=== PATIENT | female | born 1990 | race Caucasian/White ===

== ENCOUNTER → 2018-05-14 15:11 | Outpatient (CLI) | payer OTHER, SELFPAY ==
[2018-05-14 16:17] LABS: hCG Titer Quant., Serum 8 mIU/mL (<9 non-preg)
== END ==
PROVIDERS: Visit Provider Obstetrics & Gynecology
DX: N91.2 Amenorrhea, unspecified (principal)
CPT/HCPCS: 36415; 84702

== ENCOUNTER → 2018-05-25 14:35 | Outpatient (CLI) | payer OTHER, SELFPAY ==
[2018-05-25 17:38] LABS: Chlamydia Trachomatis by PCR Negative (Negative); Neisserai gonorrhoeae by PCR Negative (Negative); Probe Check PASS; Sample Adequacy Control PASS; Specimen Processing Control PASS
[2018-05-30 13:04] LABS: HPV Reflexed? NOT INDICATED
== END ==
PROVIDERS: Visit Provider Obstetrics & Gynecology
DX: Z34.81 Encounter for supervision of other normal pregnancy, first trimester (principal); Z12.4 Encounter for screening for malignant neoplasm of cervix; Z11.3 Encounter for screening for infections with a predominantly sexual mode of transmission
CPT/HCPCS: 87491; 87591; 88175; G0145

== ENCOUNTER → 2018-06-22 10:34 | Outpatient (CLI) | payer OTHER, SELFPAY ==
[2018-06-22 11:09] LABS: Absolute Lymphocyte Count 2.11 X10^3/ul (0.83-4.51); Absolute Neutrophil Count 5.2 X10^3/uL (2.0-7.7); Basophil# 0.03 X10^3/uL; Basophil% 0.4 % (0-1); Eosinophil# 0.16 X10^3/uL; Hematocrit 39.6 % (37-47); Hemoglobin 13.4 g/dl (12.0-15.0); Lymphocyte # 2.11 X10^3/ul (4.0); Lymphocyte % 26.5 % (19-41); Mean Corp Hgb Conc 33.8 g/gl (32-36); Mean Corpuscular Hgb 29.5 pg (27.0-32.0); Mean Platelet Vol. 10.2 fl (6.2-12.0); Monocyte% 6.3 % (0-10); Neutrophil # 5.16 X10^3/uL (2.7-7.7); Neutrophil % 64.7 % (47-70); Platelet Count 311 K/mm3 (150-450); RBC Distribution Width CV 13.8 % (11.6-14.6); RBC Distribution Width SD 43.9 fl (35.1-43.9); Red Blood Count 4.55 M/mm3 (4.2-5.4)
[2018-06-22 11:10] LABS: POSITIVE COUNT NO; POSITIVE DIFFERENTIAL NO; POSITIVE MORPHOLOGY NO
[2018-06-22 11:12] LABS: Color, Urine Yellow (Yellow); Glucose, Dipstick Normal (Normal); Ketone-Dipstick Negative (Negative); Leukocyte Esterase-Dipstick Negative /ul (Negative); Nitrite-Dipstick Negative (Negative); Occult Blood-Urine Negative /ul (Negative); Protein-Dipstick Negative (Negative); Urine Bilirubin Dipstick Negative (Negative); Urine Clarity Clear (Clear); Urine Urobilinogen Normal (Normal)
[2018-06-22 11:43] LABS: Thyroid Stim Hormone (TSH) 2.76 uIU/mL (0.358-3.74)
[2018-06-22 12:38] LABS: HIV - WCH Non-Reactive (Nonreactive); Rubella IgG 81.8 IU/mL
[2018-06-23 09:09] LABS: HEPATITIS B SURFACE AG Negative (Negative); Hep C Antibodies <0.1 s/co ratio (0.0-0.9)
[2018-06-29 02:28] LABS: Prenatal RPR NONREACTIVE (NONREACTIVE)
== END ==
PROVIDERS: Visit Provider Obstetrics & Gynecology
DX: Z34.81 Encounter for supervision of other normal pregnancy, first trimester (principal)
CPT/HCPCS: 36415; 81002; 84443; 85025; 86703; 86762; 86803; 87340

== ENCOUNTER → 2018-10-26 14:09 | Outpatient (CLI) | payer OTHER, SELFPAY ==
[2015-05-29 03:57] VITALS: BMI 38.0
[2018-10-26 16:26] LABS: Hematocrit 36.4 % (37-47); Hemoglobin 12.1 g/dl (12.0-15.0); Mean Corp Hgb Conc 33.2 g/gl (32-36); Mean Corpuscular Hgb 30.4 pg (27.0-32.0); Mean Corpuscular Volume 91.5 fL (81-99); Mean Platelet Vol. 10.3 fl (6.2-12.0); Platelet Count 260 K/mm3 (150-450); RBC Distribution Width SD 47.2 fl (35.1-43.9); Red Blood Count 3.98 M/mm3 (4.2-5.4); White Blood Count 7.8 K/mm3 (4.4-11.0)
[2018-10-26 16:32] LABS: Glucose Challenge Gest 1H 50g 97 mg/dL (70-140)
[2018-10-26 16:33] LABS: Scan Indicated on CBC? Y/N NO
== END ==
PROVIDERS: Visit Provider Obstetrics & Gynecology
DX: Z34.82 Encounter for supervision of other normal pregnancy, second trimester (principal)
CPT/HCPCS: 36415; 82950; 85027

== ENCOUNTER 2019-01-15 05:00 | Inpatient (IN) | payer OTHER, SELFPAY ==
[2019-01-15] VITALS (18 sets, daily range): BP systolic 92–115; BP diastolic 46–79; PULSE 71–95; RESP 14–18; TEMP 36.3–37.7; O2SAT 96–100; BMI 36.6
[2019-01-15] MEDS: Lactated Ringers 1,000 ML 999 ML IV (05:35)
[2019-01-15 06:07] LABS: Absolute Lymphocyte Count 2.62 X10^3/ul (0.83-4.51); Absolute Neutrophil Count 6.3 X10^3/uL (2.0-7.7); Basophil# 0.03 X10^3/uL; Basophil% 0.3 % (0-1); Hematocrit 34.7 % (37-47); Hemoglobin 11.7 g/dl (12.0-15.0); Lymphocyte # 2.62 X10^3/ul (4.0); Lymphocyte % 26.5 % (19-41); Mean Corp Hgb Conc 33.7 g/gl (32-36); Mean Corpuscular Hgb 28.9 pg (27.0-32.0); Mean Corpuscular Volume 85.7 fL (81-99); Mean Platelet Vol. 10.6 fl (6.2-12.0); Monocyte# 0.67 X10^3/uL; Monocyte% 6.8 % (0-10); Neutrophil # 6.33 X10^3/uL (2.7-7.7); Neutrophil % 64.1 % (47-70); Platelet Count 269 K/mm3 (150-450); RBC Distribution Width CV 13.1 % (11.6-14.6); RBC Distribution Width SD 41.3 fl (35.1-43.9); Red Blood Count 4.05 M/mm3 (4.2-5.4); White Blood Count 9.9 K/mm3 (4.4-11.0)
[2019-01-15 06:09] LABS: POSITIVE COUNT NO; POSITIVE DIFFERENTIAL NO; POSITIVE MORPHOLOGY NO
[2019-01-15] MEDS: Lactated Ringers 1,000 ML 150 ML IV (06:37)
[2019-01-15 06:48] LABS: Prothrombin Time (Protime)PT. 12.9 SECONDS (11.7-14.9)
[2019-01-15 06:49] LABS: Partial Thromboplast Time 27.1 Seconds (24.1-36.2)
[2019-01-15] MEDS: Sodium Citrate/Citric Acid 30 ML UDC PO (07:14)
[2019-01-15] MEDS: Ondansetron 4 MG/2 ML Vial IV (07:35)
[2019-01-15] MEDS: Oxytocin 30 units/NS 500 ml 30 UNITS/500 ML IV.SOLN 167 UNITS IV (07:48)
[2019-01-15] MEDS: Ketorolac 30 MG/ML Syringe IV ×4 (08:09→23:32)
[2019-01-15] MEDS: Lactated Ringers 1,000 ML 100 ML IV ×2 (09:00→16:01)
--- NOTE | 2019-01-15 10:39 | PCM.OPRPT ---
Report of Operation Date of Procedure: 01/15/19 Pre-Operative Diagnosis: 39 wk prior C section. Planned repeat C section Post-Operative Diagnosis: Same Surgery/Procedure Performed:: Repeat C section Description of Surgical Findings:: Findings: At amniotomy, clear fluid was noted. Tejada viable male in vertex presentation. Apgars 9/9, Baby weight: 8# 6 oz There was a normal appearing uterus, fallopian tubes and ovaries bilaterally. There were minimal filmy adhesions between the bladder and lower uterine segment. tank bottom assembler: Kalli Mobley Type of Anesthesia:: Spinal Anesthesiologist: Pedro Luis Buenrostro Specimen's removed: Placenta Drains: Valdes Estimated Blood Loss (mL): 800 Description of Procedure: Narrative account: After the risks, benefits and alternatives of the procedure were reviewed with the patient, informed consent was obtained. The patient was taken to the Operating room with an IV running, and placed in a seated position on the operating table for placement of the spinal. Once the spinal had been administered, she was placed in dorsal supine position, briefly frog-legged for Valdes catheter placement, and then repositioned to dorsal supine position with leftward displacement of the uterus, and prepped and draped in the usual sterile fashion. Once the spinal was deemed adequate, a Pfannenstiel skin incision was created using the knife (through the prior skin incision scar). The incision was carried down to the rectus fascia using the knife. The fascia was nicked in the midline. The fascial incision was extended bilaterally using curved Clements scissors. The superior aspect of the fascial incision was grasped with Lorie clamps and tented up and the underlying rectus abdominal muscles were dissected free. In a similar manner, the inferior aspect of the facial incision was grasped with Lorie clamps tented up and the underlying rectus abdominal muscles were dissected free. The rectus abdominis muscles were in the midline and the peritoneum was identified and entered by blunt dissection high in the incision. The peritoneum was stretched laterally and a bladder blade was inserted. The uterine incision was then created using Metzenbaum scissors. The operators fingertips were used to extend the uterine incision by blunt dissection in a caudad- cephalad orientation . Clear fluid was noted at amniotomy. The vertex was then delivered atraumatically through the incision. The OP and nares were bulb suctioned on the abdomen. The shoulders delivered easily . No nuchal cord was noted. The cord clamped x two and cut. And the infant was handed off to the nurse awaiting delivery after briefly showing him to his parents. The baby had a spontaneous, vigorous cry. The placenta was then delivered. The uterus was exteriorized and cleared of clots and debris . The uterine incision was repaired with 1 Vicryl in a running locked fashion. A second imbricating layer was then placed, using 1 Monocryl in running nonlocked fashion. Excellent hemostasis was noted. At this point the uterus was returned to the abdominal cavity. The gutters were cleared of clots and debris and the incision at the uterus was inspected. Excellent hemostasis was noted. The peritoneal edges and rectus abdominis muscles were reapproximated in the midline with interrupted stitches of 1 Vicryl. Excellent hemostasis was noted at the subfascial space The fascia was closed in a running nonlocked fashion with a Stratofix. The Subcutaneous fatty tissue was Bovie cauterized as needed for hemostasis. This layer was then reapproximated in a single layer closure of running 3-0 Vicryl to eliminate space. The skin edges were closed in a Subcuticular stitch of 4-0 Monocryl. The incision was cleansed. Cavilon, Steristrips, and Mepilex dressing were applied to the skin . The patient was then transferred to the recovery room bed in stable condition after tolerating the procedure well. Sponge, lap, needle and instrument counts correct times two. Medications given preop and intraoperatively included: antibiotics given cash on delivery clerk to the operating room. The patient also received Pitocin given IV after cord clamp, and Toradol 30 mg IV times one. For a complete listing of medications given preop and intraoperatively, please see the anesthesia record. - Complications None - Admit VTE Documentation VTE Present on Admission: No VTE Mechan Device Prophylaxis: SCD's VTE Pharm Prophylaxis ordered?: No
--- NOTE | 2019-01-15 10:44 | OP.PCM_ITS ---
Report of Operation Date of Procedure: 01/15/19 Pre-Operative Diagnosis: 39 wk prior C section. Planned repeat C section Post-Operative Diagnosis: Same Surgery/Procedure Performed:: Repeat C section Description of Surgical Findings:: Findings: At amniotomy, clear fluid was noted. Tejada viable male in vertex presentation. Apgars 9/9, Baby weight: 8# 6 oz There was a normal appearing uterus, fallopian tubes and ovaries bilaterally. There were minimal filmy adhesions between the bladder and lower uterine segment. director supply: Kalli Mobley Type of Anesthesia:: Spinal Anesthesiologist: Pedro Luis Buenrostro Specimen's removed: Placenta Drains: Valdes Estimated Blood Loss (mL): 800 Description of Procedure: Narrative account: After the risks, benefits and alternatives of the procedure were reviewed with the patient, informed consent was obtained. The patient was taken to the Operating room with an IV running, and placed in a seated position on the operating table for placement of the spinal. Once the spinal had been admini stered, she was placed in dorsal supine position, briefly frog-legged for Valdes catheter placement, and then repositioned to dorsal supine position with leftward displacement of the uterus, and prepped and draped in the usual sterile fashion. Once the spinal was deemed adequate, a Pfannenstiel skin incision was created using the knife (through the prior skin incision scar). The incision was carried down to the rectus fascia using the knife. The fascia was nicked in the midline. The fascial incision was extended bilaterally using curved Clements scissors. The superior aspect of the fascial incision was grasped with Lorie clamps and tented up and the underlying rectus abdominal muscles were dissected free. In a similar manner, the inferior aspect of the facial incision was grasp ed with Lorie clamps tented up and the underlying rectus abdominal muscles were dissected free. The rectus abdominis muscles were in the midline and the peritoneum was identified and entered by blunt dissection high in the incision. The peritoneum was stretched laterally and a bladder blade was inserted. The uterine incision was then created using Metzenbaum scissors. The operators fingertips were used to extend the uterine incision by blunt dissection in a caudad- cephalad orientation . Clear fluid was noted at amniotomy. The vertex was then delivered atraumatically through the incision. The OP and nares were bulb suctioned on the abdomen. The shoulders delivered easily . No nuchal cord was noted. The cord clamped x two and cut. And the infant was handed off to the nurse awaiting delivery after briefly showing him to his parents. The baby had a spontaneous, vigorous cry. The placenta was then delivered. The uterus was exteriorized and cleared of clots and debris . The uterine incision was repaired with 1 Vicryl in a running locked fashion. A second imbricating layer was then placed, using 1 Monocryl in running nonlocked fashion. Excellent hemostasis was noted. At this point the uterus was returned to the abdominal cavity. The gutters were cleared of clots and debris and the incision at the uterus was inspected. Excellent hemostasis was noted. The peritoneal edges and rectus abdominis muscles were reapproximated in the midline with interrupted stitches of 1 Vicryl. Excellent hemostasis was noted at the subfascial space The fascia was closed in a running nonlocked fashion with a Stratofix. The Subcutaneous fatty tissue was Bovie cauterized as needed for hemostasis. This layer was then reapproximated in a single layer closure of running 3-0 Vicryl to eliminate space. The skin edges were closed in a Subcuticular stitch of 4-0 Monocryl. The incision was cleansed. Cavilon, Steristrips, and Mepilex dressing were applied to the skin . The patient was then transferred to the recovery room bed in stable condition after tolerating the procedure well. Sponge, lap, needle and instrument counts correct times two. Medications given preop and intraoperatively included: antibiotics given consumer services consultant to the operating room. The patient also received Pitocin given IV after cord clamp, and Toradol 30 mg IV times one. For a complete listing of medications given preop and intraoperatively, please see the anesthesia record. - Complications None - Admit VTE Documentation VTE Present on Admission: No VTE Mechan Device Prophylaxis: SCD's VTE Pharm Prophylaxis ordered?: No
--- NOTE | 2019-01-15 12:01 | PCM.DCCSEC ---
Discharge Diet: No Restrictions Discharge Activity: May not drive while taking narcotic pain medications., May Shower, May Take a Tub Bath Return to work on:: 03/11/19 May resume sexual activity in: 4-6 weeks Lifting Restrictions: 20 pounds Additional Activity Instructions:: Nothing in the vagina for 4-6 weeks. You may return to work/school in 6 weeks. Additional Instructions: If you experience any of the following, contact your healthcare provider. Bleeding that soaks a pad every hour for 2 hours Fever 100.4 or higher Unrelieved incision or abdominal pain Swelling, redness, discharge or bleeding from your incision Problems urinating (including inability to urinate or burning while urinating). Visual changes Severe headache Flu-like symptoms Pain or redness in one of both of your breasts Pain, warmth, tenderness or swelling in your legs, especially the calf area Frequent nausea and vomiting Symptoms of depression or anxiety If you experience any of the following, call 911 or go to the nearest Emergency Room. Chest pain Problems breathing Seizure activity Partial or complete paralysis of a body part, slurred speech, weakness or drooping of the face, or a sudden inability to walk or hold your balance Allergies/Adverse Reactions: Allergies No Known Allergies Allergy (Verified 01/15/19 05:33) Medications to take at Discharge Vits [Prenatabs FA ] 1 tablet PO DAILY 05/19/15 Acetaminophen [Tylenol] 1,000 mg PO Q8H PRN tablet 01/15/19 Naproxen [Naprosyn] 250 - 500 mg PO Q8H PRN PRN #30 tablet 01/15/19 Oxycodone [Oxyir] 5 - 10 mg PO Q6H PRN PRN 7 Days #20 tablet 01/15/19 Senna/Docusate Sodium [Senokot-S] 1 tab PO DAILY PRN #30 tablet 01/15/19 The following prescriptions were given: Oxycodone [Oxyir] 5 - 10 mg PO Q6H PRN PRN 7 Days #20 tablet PRN Reason: Mod-Severe Pain (4-10/10) Naproxen [Naprosyn] 250 - 500 mg PO Q8H PRN PRN #30 tablet PRN Reason: Mild Pain (1-3/10) Senna/Docusate Sodium [Senokot-S] 1 tab PO DAILY PRN #30 tablet PRN Reason: Constipation Follow-Up: Call to make an appointment with your doctor for an incision check in 1-2 weeks. You will also need a 6 week post- follow up appointment. Test results from this visit will be discussed in further detail at your follow-up appointment, if applicable. Please Follow Up With: Hoang Palma MD - [phone] When: Call to make an appointment for an incision check in 2 weeks. Primary Care Physician: Rebekah Gomez PA-C [Primary Care Provider] - Proposed Discharge Date: 01/18/19
--- NOTE | 2019-01-15 12:05 | DCINST_ITS ---
Discharge Diet: No Restrictions Discharge Activity: May not drive while taking narcotic pain medications., May Shower, May Take a Tub Bath Return to work on:: 03/11/19 May resume sexual activity in: 4-6 weeks Lifting Restrictions: 20 pounds Additional Activity Instructions:: Nothing in the vagina for 4-6 weeks. You may return to work/school in 6 weeks. Additional Instructions: If you experience any of the following, contact your healthcare provider. * Bleeding that soaks a pad every hour for 2 hours * Fever 100.4 or higher * Unrelieved incision or abdominal pain * Swelling, redness, discharge or bleeding from your incision * Problems urinating (including inability to urinate or burning while urinating). * Visual changes * Severe headache * Flu-like symptoms * Pain or redness in one of both of your breasts * Pain, warmth, tenderness or swelling in your legs, especially the calf area * Frequent nausea and vomiting * Symptoms of depression or anxiety If you experience any of the following, call 911 or go to the nearest Emergency Room. * Chest pain * Problems breathing * Seizure activity * Partial or complete paralysis of a body part, slurred speech, weakness or drooping of the face, or a sudden inability to walk or hold your balance Allergies/Adverse Reactions: Allergies No Known Allergies Allergy (Verified 01/15/19 05:33) Medications to take at Discharge Vits [Prenatabs FA ] 1 tablet PO DAILY 05/19/15 Acetaminophen [Tylenol] 1,000 mg PO Q8H PRN tablet 01/15/19 Naproxen [Naprosyn] 250 - 500 mg PO Q8H PRN PRN #30 tablet 01/15/19 Oxycodone [Oxyir] 5 - 10 mg PO Q6H PRN PRN 7 Days #20 tablet 01/15/19 Senna/Docusate Sodium [Senokot-S] 1 tab PO DAILY PRN #30 tablet 01/15/19 The following prescriptions were given: Oxycodone [Oxyir] 5 - 10 mg PO Q6H PRN PRN 7 Days #20 tablet PRN Reason: Mod-Severe Pain (4-10/10) Naproxen [Naprosyn] 250 - 500 mg PO Q8H PRN PRN #30 tablet PRN Reason: Mild Pain (1-3/10) Senna/Docusate Sodium [Senokot-S] 1 tab PO DAILY PRN #30 tablet PRN Reason: Constipation Follow-Up: Call to make an appointment with your doctor for an incision check in 1-2 weeks. You will also need a 6 week post- follow up appointment. Test results from this visit will be discussed in further detail at your follow- up appointment, if applicable. Please Follow Up With: Hoang Palma MD - [phone] When: Call to make an appointment for an incision check in 2 weeks. Primary Care Physician: Rebekah Gomez PA-C [Primary Care Provider] - Proposed Discharge Date: 01/18/19
[2019-01-15] MEDS: Senna/Docusate Sodium 1 Tablet PO (23:32)
[2019-01-15] MEDS: 0.9% Saline Lock 10 ML Syringe IV (23:33)
[2019-01-16] VITALS (7 sets, daily range): BP systolic 96–128; BP diastolic 49–77; PULSE 80–88; RESP 12–18; TEMP 36.7–37.1; O2SAT 97–100
[2019-01-16] MEDS: Lactated Ringers 1,000 ML 100 ML IV (01:54)
[2019-01-16] MEDS: Ketorolac 30 MG/ML Syringe IV ×3 (05:59→19:03)
[2019-01-16] MEDS: 0.9% Saline Lock 10 ML Syringe IV ×4 (05:59→19:03)
[2019-01-16 06:53] LABS: Hematocrit 28.5 % (37-47); Hemoglobin 9.1 g/dl (12.0-15.0); Mean Corp Hgb Conc 31.9 g/gl (32-36); Mean Corpuscular Hgb 28.3 pg (27.0-32.0); Mean Corpuscular Volume 88.8 fL (81-99); Mean Platelet Vol. 10.7 fl (6.2-12.0); Platelet Count 219 K/mm3 (150-450); RBC Distribution Width CV 13.4 % (11.6-14.6); RBC Distribution Width SD 43.5 fl (35.1-43.9); Red Blood Count 3.21 M/mm3 (4.2-5.4); White Blood Count 10.6 K/mm3 (4.4-11.0)
[2019-01-16 06:54] LABS: Scan Indicated on CBC? Y/N NO
--- NOTE | 2019-01-16 07:52 | PCM.PN.OB ---
Subjective: POD#! Repeat C/S Doing well. Pain is minimal. Breast feeding. No concerns voiced. Mccracken in place. - Physical Exam General: Alert, Oriented x3, Cooperative, No apparent distress HEENT: Atraumatic Neck: Supple Abdomen: Soft - Fundus firm NT at umbilicus Skin: Incision - Mepilex CDI small spot of shadow dischg marked. Neurological: Cranial nerves II-XII grossly intact Psych/Mental Status: Normal Affect Vital Signs Temp Pulse Resp BP Pulse Ox 98.1 F 84 18 96/49 L 99 01/16/19 03:35 01/16/19 06:03 01/16/19 06:03 01/16/19 03:35 01/16/19 06:03 Oxygen Delivery Method Room Air Weight: 93.803 kg Body Mass Index (BMI) 36.6 Intake and Output for Last 24 Hours 01/14/19 01/15/19 01/16/19 23:59 23:59 23:59 Intake Total 4370 / 4370 1599 / 1599 Output Total 1050 / 1050 1000 / 1000 Balance 3320 / 3320 599 / 599 Laboratory Tests Past 24 Hrs 01/15/19 01/16/19 05:35 05:55 WBC 10.6 RBC 3.21 L Hgb 9.1 L Hct 28.5 L MCV 88.8 MCH 28.3 MCHC 31.9 L RDW 13.4 RDW Differential 43.5 Plt Count 219 MPV 10.7 Blood Type B POSITIVE Antibody Screen NEGATIVE Medical Necessity - Tobacco Use Smoking Status: Never smoker Assessment/Plan POD#1 Repeat C/S Stable postop Minimal acute blood loss anemia. Iron bid ordered. Inc diet and activity as tolerated. Begin po meds. D/C mccracken for voiding trial. May shower. Continue routine postop care.
[2019-01-16] MEDS: Prenatal Vits Tablet 1 TABLET PO (10:57)
[2019-01-16] MEDS: oxyCODONE 5 MG Tablet PO ×3 (10:57→19:51)
[2019-01-16] MEDS: Senna/Docusate Sodium 1 Tablet PO (15:26)
[2019-01-17] MEDS: Ketorolac 30 MG/ML Syringe IV (01:32)
[2019-01-17] MEDS: 0.9% Saline Lock 10 ML Syringe IV (01:33)
[2019-01-17 01:45] VITALS: BP 103/70; PULSE 73; RESP 18; TEMP 37
[2019-01-17] MEDS: Naproxen 250 MG Tablet PO (07:41)
[2019-01-17 08:34] VITALS: BP 110/70; PULSE 93; RESP 18; TEMP 36.6
--- NOTE | 2019-01-17 08:39 | NURSING ---
Uterus slightly right of midline. Pt stated just voided, feels bladder emptied. no distention palpated. Will continue to monitor.
--- NOTE | 2019-01-17 08:55 | PCM.PN.OB ---
Subjective: No specific complaints. Breast feeding. Bleeding light. Pain reasonably controlled. Objective: Afeb VSS - Physical Exam General: Alert, Oriented x3, Cooperative, No apparent distress Lungs: Clear to auscultation, Normal air movement Cardiovascular: Regular rate, Regular Rhythm Abdomen: Soft, Non Tender, Non-Distended, - - Incision dressing dry Extremities: No edema Skin: No rashes Neurological: Neuro grossly intact Psych/Mental Status: Normal Affect Comment: Lochia light Vital Signs Temp Pulse Resp BP Pulse Ox 97.8 F 93 18 110/70 97 01/17/19 08:34 01/17/19 08:34 01/17/19 08:34 01/17/19 08:34 01/16/19 13:55 Oxygen Delivery Method Room Air Weight: 206 lb 12.8 oz Body Mass Index (BMI) 36.6 Intake and Output for Last 24 Hours //01 02/01/0101/17/19 23:59 23:59 23:59 Intake Total 4370 / 4370 2482 / 2482 Output Total 1050 / 1050 2300 / 2300 Balance 3320 / 3320 182 / 182 Medical Necessity - Tobacco Use Smoking Status: Never smoker Assessment/Plan Doing well on POD#2. Cleared for discharge home today. Home going instructions and warnings given.
--- NOTE | 2019-01-17 08:57 | PCM.DC.SUM ---
Discharge Date and Diagnosis Date of Admission: 01/15/19 Date of Discharge: 01/17/19 - Primary Discharge Diagnosis S/P repeat LTCS Hospital Course and Treatment Operations: - - Repeat LTCS Summary of Care Provided: The patient is a 29 year old F [admitted for repeat LTCS which was performed without complication. Post operative course unremarkable. Discharged home on POD#2.] - Physical Exam Vital Signs Temp Pulse Resp BP Pulse Ox 97.8 F 93 18 110/70 97 01/17/19 08:34 01/17/19 08:34 01/17/19 08:34 01/17/19 08:34 01/16/19 13:55 Oxygen Delivery Method Room Air Weight: 206 lb 12.8 oz Body Mass Index (BMI) 36.6 Intake and Output for Last 24 Hours 01/15/19 01/16/19 01/17/19 23:59 23:59 23:59 Intake Total 4370 / 4370 2482 / 2482 Output Total 1050 / 1050 2300 / 2300 Balance 3320 / 3320 182 / 182 Discharge Diet: No Restrictions Discharge Activity: May not drive while taking narcotic pain medications., May Shower, May Take a Tub Bath Return to work on:: 03/11/19 May resume sexual activity in: 4-6 weeks Additional Activity Instructions:: Nothing in the vagina for 4-6 weeks. You may return to work/school in 6 weeks. Call your doctor if you observe: Fever of 101 or Higher, Inability to urinate, Inability to have a bowel movement, Using more than one pad per hour, Shortness of breath, Chest pain, Calf discomfort, Uncontrolled pain Remove Dressing in (days):: 3 Cleanse incision/area with: Soap & Water Home Medications: Medications to take at Discharge Vits [Prenatabs FA ] 1 tablet PO DAILY 05/19/15 Acetaminophen [Tylenol] 1,000 mg PO Q8H PRN tablet 01/15/19 Naproxen [Naprosyn] 250 - 500 mg PO Q8H PRN PRN #30 tablet 01/15/19 Oxycodone [Oxyir] 5 - 10 mg PO Q6H PRN PRN 7 Days #20 tablet 01/15/19 Senna/Docusate Sodium [Senokot-S] 1 tab PO DAILY PRN #30 tablet 01/15/19 Ferrous Sulfate 325 mg PO BIDCM #60 tablet 01/16/19 Following Prescrptions Were Given to Patient: Oxycodone [Oxyir] 5 - 10 mg PO Q6H PRN PRN 7 Days #20 tablet PRN Reason: Mod-Severe Pain (4-07/25) Naproxen [Naprosyn] 250 - 500 mg PO Q8H PRN PRN #30 tablet PRN Reason: Mild Pain (-12/23) Senna/Docusate Sodium [Senokot-S] 1 tab PO DAILY PRN #30 tablet PRN Reason: Constipation Ferrous Sulfate 325 mg PO BIDCM #60 tablet Primary Care Physician: Rebekah Gomez PA-C [Primary Care Provider] - Please Follow Up With: Hoang Palma MD - [phone] When: Call to make an appointment for an incision check in 2 weeks. Disposition: Home Minutes spent on discharge:: 15 Patient Condition:: Good Medical Necessity - Tobacco Use Smoking Status: Never smoker Meaningful Use Info Meaningful Use Diagnoses (Choose all that apply): None applicable
[2019-01-17] MEDS: Acetaminophen 500 MG Tablet 1000 MG PO (09:04)
[2019-01-17 12:00] VITALS: BP 110/74; PULSE 83; RESP 18; TEMP 37.2
[2019-01-17] MEDS: oxyCODONE 5 MG Tablet PO (12:20)
[2019-01-17 15:30] VITALS: BP 110/70; PULSE 93; RESP 18; TEMP 36.6; O2SAT 99
== END 2019-01-17 15:30 | disposition home or self-care (01) | DRG 788 ==
PROVIDERS: Admitting Provider Obstetrics & Gynecology; Family Provider Family Medicine; PCP Family Medicine; Referring Provider Obstetrics & Gynecology; Visit Provider Obstetrics & Gynecology
PROC: 10D00Z1 Extraction of Products of Conception, Low, Open Approach (ICD-10-PCS; CPT 59514; principal; 2019-01-15 07:15)
DX: O34.211 Maternal care for low transverse scar from previous cesarean delivery (principal); N85.8 Other specified noninflammatory disorders of uterus; Z3A.39 39 weeks gestation of pregnancy; Z37.0 Single live birth
CPT/HCPCS: 85025; 85027; 85610; 85730; 86850; 86900; 99218; J7120; A4216; G0378; J2405